=== PATIENT | female | born 1940 | race Caucasian/White ===

== ENCOUNTER → 2017-01-03 | Outpatient (CLI) | payer MEDICARE, OTHER | LOC: RAD 18:49 | DX: R06.00 Dyspnea, unspecified (principal); R91.8 Other nonspecific abnormal finding of lung field | CPT/HCPCS: 71020 ==

== ENCOUNTER 2022-05-04 15:26 | Emergency (ER) | payer MEDICARE, OTHER ==
[~2022-05-04 15:26] MED LIST: ASPIRIN CHEWABL81 MG PO; COZAAR50 MG PO; KLONOPIN TAB 00.5 MG PO; MESTINON60 MG PO; NEURONTIN 100100 MG PO; PAXIL20 MG PO; PRAVACHOL20 MG PO; SYNTHROID100 MCG PO; TOPROL XL50 MG PO; ULTRAM50 MG PO
[2022-05-05] MEDS ORDERED: HYDROCODON-ACE1 EAC4 PO (00:30)
[2022-05-05] MEDS ORDERED: ZOFRAN ODT 4 MG4 MG PO (00:32)
== END 2022-05-05 00:59 | disposition home or self-care (01) ==
LOC: ER1 15:26
DX: S42.415A Nondisplaced simple supracondylar fracture without intercondylar fracture of left humerus, initial encounter for closed fracture (principal); I10 Essential (primary) hypertension; W01.0XXA Fall on same level from slipping, tripping and stumbling without subsequent striking against object, initial encounter; Y92.009 Unspecified place in unspecified non-institutional (private) residence as the place of occurrence of the external cause
CPT/HCPCS: 29105; 73030; 73060; 73080; 73090; 73110; 99283